=== PATIENT | female | born 1930 | race Caucasian/White ===

== ENCOUNTER 2017-07-17 20:28 | Emergency (ER) | payer MEDICARE, OTHER ==
[~2017-07-17] VITALS: Ht 157.5 cm; Wt 80.9 kg
[2017-07-17] MEDS ORDERED: SODIUM CHLORIDE 0.9% 1,000ML IVBOLUS ONE (23:30)
[2017-07-17] MEDS ORDERED: PROPOFOL 10 MG/ML, 20ML IVPush ONE (23:30)
[2017-07-17] MEDS ORDERED: SODIUM CHLORIDE FLUSH 10ML SYR IVF ONE (23:30)
[2017-07-17] MEDS ORDERED: PROPOFOL 10 MG/ML, 20ML ONE (23:35)
[2017-07-18 01:58] VITALS: BP 153/63
== END 2017-07-18 02:01 | disposition home or self-care (01) ==
LOC: ED 22:47
DX: S82.852A Displaced trimalleolar fracture of left lower leg, initial encounter for closed fracture (principal); E11.9 Type 2 diabetes mellitus without complications; I48.91 Unspecified atrial fibrillation; X50.1XXA Overexertion from prolonged static or awkward postures, initial encounter; Y93.89 Activity, other specified; Y92.488 Other paved roadways as the place of occurrence of the external cause; Y99.8 Other external cause status
CPT/HCPCS: 27818; 73590; 73610; 99152; 99285; J7030; 99153